=== PATIENT | female | born 1970 | race Caucasian/White ===

== ENCOUNTER 2020-03-02 09:32 | Inpatient (IN) | payer OTHER ==
[~2020-03-02] VITALS: Ht 160 cm; Wt 56.7 kg
--- NOTE | ~2020-03-02 | CON ---
[address] [address] CONSULTATION Name: LASHAWN CABALLERO Room: [address] IN M.R.#: [id number] Admission: 03/03/20 Attend Phys: Wai Swanson MD Discharge: Date of : 74 Report #: [id number] THIS REPORT FOR: //name// cc: FAM - No family physician/PCP FAM - No family physician/PCP ~ DATE OF SERVICE: 03/05/2020 The patient does not have a PCP. Please note at the time of this dictation, the patient was seen and physically examined by myself. REASON FOR CONSULTATION: Elevated LFTs and liver cyst. HISTORY OF PRESENT ILLNESS: This 49-year-old female who has a strong history of coronary artery disease that presented to the Emergency Room with mid epigastric pain associated with nausea, no vomiting that has gotten worse. She states the pain had started last Sunday and she associated that with maybe a viral syndrome because she was having some myalgias and joint pains as well. She denied any weight loss. She did have a little bit of a decreased p.o. intake and decreased appetite with a feeling of nausea. Because she has had a history of heart attack in the past and blood clots prompted her to come to the emergency to get that ruled out. It was noted she had EKG changes and elevated troponin. She was taken to the pie bakery laborer, which was essentially negative today. She does have an EF of 15-20% and her cast today just showed very minimal plaquing. She has never had an EGD or colonoscopy done in the past either. She denies taking any NSAIDs on a regular basis as well. ALLERGIES: ACETAMINOPHEN, IBUPROFEN AND DICLOFENAC. MEDICATIONS FROM HOME: See MAR. PAST MEDICAL HISTORY: Coronary artery disease, hypertension, hypothyroidism and history of an SC. PAST SURGICAL HISTORY: Negative. FAMILY HISTORY: Negative for any GI or female cancers. SOCIAL HISTORY: Denies any alcohol. She continues to smoke tobacco and denies any illegal drug use at this time. REVIEW OF SYSTEMS: Twelve-point review of systems is essentially negative except what is mentioned in the HPI. PHYSICAL EXAMINATION: [place] [address] CONSULTATION Name: LASHAWN CABALLERO [place] Room: [address]#: [id number] Admission: 03/03/20 Attend Phys: Wai Swanson MD Discharge: Date of : 74 Report #: [id number] VITAL SIGNS: Temperature 36.3, pulse 84, respirations 15, blood pressure 162/119. HEART: Regular rate and rhythm. LUNGS: Diminished, but clear. ABDOMEN: Soft, positive bowel sounds in all 4 quadrants with extreme epigastric tenderness noted to palpation. LABORATORY DATA: Hemoglobin is 12, white count 7.5, platelets 221. Total bilirubin 0.5, alkaline phosphatase 141, ALT is 171, AST is 98. Her acute hepatitis panel is negative. AMA, ASMA and GABY are pending. GFR is 53. DIAGNOSTIC DATA: CT scan was essentially negative with some multiple liver cysts noted. Ultrasound continues to show consistent with cysts that appear to be benign. IMPRESSION: 1. Epigastric pain, severe. 2. Elevated LFTs. 3. Hepatic cyst, likely benign. 4. Cardiomyopathy. PLAN: 1. EGD tomorrow in the a.m. with Dr. Urena. 2. Liver labs pending. 3. Further recommendations to be made once the procedure has been performed. Thank you for allowing us to participate in this patient's care. Please do not hesitate to call with any questions in regard to this consult. By: 1148 1220Huan Urena MD /nt
[~2020-03-02 09:32] MED LIST: BACTRIM DS TAB1 EACH PO; BIRTH CONTROL; CIPROFLOXACIN500 M3 PO; DIFLUCAN150 MG PO; LANSOPRAZOLE30 MG PO; LISINOPRIL-HCT1 EACH PO; MEDROLDOSEPACK PO; NORCO 5-325 TA1 EACH PO; OXYCODONE HCL 55 MG PO; PENICILLIN VK250 MG PO; PERCOCET 5-3251 EACH PO; PYRIDIUM200 MG PO; ROXICODONE5 M1 PO; SPRINTEC1 EACH; SYNTHROID50 MCG PO
[2020-03-02 09:33] VITALS: BP 187/142
[2020-03-02 10:01] LABS: ABSOLUTE BASOPHILS 0.1 thou/uL (0.0-0.2); ABSOLUTE LYMPHOCYTES 1.1 thou/uL (0.8-5.3); ABSOLUTE MONOCYTES 0.4 thou/uL (0.0-1.2); ABSOLUTE NEUTROPHILS 6.2 thou/uL (1.6-8.1); EOSINOPHILS 0.1 %; HEMATOCRIT 38.1 % (37.0-47.0); HEMOGLOBIN 12.8 gm/dL (12.0-15.0); LYMPHOCYTES 14.4 %; MCH 29.5 pg (26.0-34.0); MCHC 33.5 g/dL (28.0-37.0); MCV 88.2 fL (80.0-100.0); MONOCYTES 4.7 %; MPV 8.6 fl. (7.2-11.1); NUCLEATED RBCS 0 /100WBC; PLATELET COUNT* 216 thou/uL (150-400); POLYS 79.8 %; RBC 4.32 mil/uL (4.20-5.00); RDW-CV 14.5 % (10.5-14.5); WBC 7.7 thou/uL (4.0-11.0)
[2020-03-02 10:10] LABS: CALCIUM 8.7 mg/dL (8.5-10.1); CREATININE 1.1 mg/dL (0.6-1.3)
[2020-03-02 10:17] LABS: ALBUMIN 3.7 g/dL (3.4-5.0); MAGNESIUM 1.9 mg/dL (1.8-2.4); TOTAL BILIRUBIN 1.1 mg/dL (<0.1-1.0); TOTAL PROTEIN 7.4 g/dL (6.4-8.2)
[2020-03-02 11:04] LABS: APTT 23.8 Seconds (25.0-31.3); INR 1.1; PROTIME 11.1 Seconds (9.20-11.50)
[2020-03-02 11:31] LABS: URINE BILIRUBIN NEGATIVE (Negative); URINE BLOOD NEGATIVE (Negative); URINE CLARITY CLEAR; URINE COLOR YELLOW; URINE GLUCOSE-RANDOM NEGATIVE (Negative); URINE KETONES NEGATIVE (Negative); URINE LEUKOCYTES-REFLEX NEGATIVE (Negative); URINE NITRITE-REFLEX NEGATIVE (Negative); URINE PROTEIN 3+ (Negative); URINE SPECIFIC GRAVITY >= 1.030 (1.005-1.030); URINE UROBILINOGEN 0.2 E.U./dl (0.2-1.0)
[2020-03-02 11:39] LABS: AMP/METHAMP Negative (Negative); BARBITURATES Negative (Negative); BENZODIAZEPINES Negative (Negative); COCAINE Negative (Negative); METHADONE Negative (Negative); OPIATES Negative (Negative); PCP Negative (Negative); THC Negative (Negative)
[2020-03-02 11:41] LABS: SQUAMOUS 0-3 Few /LPF (0-3)
[2020-03-02 11:42] LABS: AMORPHOUS URATES Few /LPF (None Seen); BACTERIA-REFLEX 1-9 Few /HPF (None Seen); CRYSTALS None Seen /LPF (None Seen); FINE GRANULAR CASTS 0-3 Few /LPF (None Seen); URINE RBC 0-2 Rare /HPF (0-2); URINE WBC-REFLEX 0-5 Rare /HPF (0-5)
[2020-03-02 12:42] LABS: CHOLESTEROL 198 mg/dL (<200); HDL CHOLESTEROL 60 mg/dL (>40); LDL CHOLESTEROL 120 mg/dL (<100); TC:HDL 3.3 Ratio (Not establshd); TRIGLYCERIDE 91 mg/dL (<150); VLDL 18 mg/dL (<40)
[2020-03-02 12:45] LABS: SERUM ASSESSMENT Clear
[2020-03-02 20:20] VITALS: BP 114/82
[2020-03-02 21:00] VITALS: BP 118/80
[2020-03-02 23:06] LABS: HEPATITIS B SURFACE AG Negative (Negative)
[2020-03-03] VITALS: BP 125/81
[2020-03-03 04:00] VITALS: BP 128/46
[2020-03-03 04:18] LABS: HEMATOCRIT 37.2 % (37.0-47.0); HEMOGLOBIN 12.5 gm/dL (12.0-15.0); MCH 29.4 pg (26.0-34.0); MCHC 33.5 g/dL (28.0-37.0); MCV 87.8 fL (80.0-100.0); MPV 8.6 fl. (7.2-11.1); RBC 4.24 mil/uL (4.20-5.00); RDW-CV 14.8 % (10.5-14.5); WBC 7.9 thou/uL (4.0-11.0)
[2020-03-03 04:39] LABS: CALCIUM 8.2 mg/dL (8.5-10.1); CREATININE 1.2 mg/dL (0.6-1.3); POTASSIUM 3.1 mmol/L (3.5-5.1)
[2020-03-03 04:43] LABS: ALBUMIN 3.1 g/dL (3.4-5.0); MAGNESIUM 1.8 mg/dL (1.8-2.4); TOTAL BILIRUBIN 0.7 mg/dL (<0.1-1.0); TOTAL PROTEIN 6.4 g/dL (6.4-8.2)
--- NOTE | 2020-03-03 04:44 | NUR ---
RECIEVED REPORT FROM ZE MINAYA. PT TRANSFERRED TO 229. PT A&OX4. VSS. TECHNOLOGY SALES SPECIALIST IN PLACE. ADMISSION HISTORY & PHYSICAL ASSESSMENT COMPLETED AND CHARTED. PT ON RA. PT TRACING SR/SB ON TELE. PT UPADLIB TO RESTROOM. PT DENIES CHEST PAIN. MAINTAINED ON HEPARIN DRIP. MANTAINED ON ENHANCED PRECAUTION-PENDING COVID PCR. CALL LIGHT WITHIN REACH.
[2020-03-03 07:30] VITALS: BP 146/93
--- NOTE | 2020-03-03 11:24 | EKG ---
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 : 1970 Requested By: Nereyda Cannon Order Number: [id number] MD: Dominguez Fry Measurements Intervals [place] Rate: 116 P: 59 KS: 139 QRS: -20 QRSD: 109 T: 127 QT: 360 QTc: 501 Interpretive Statements Sinus tachycardia with pvc Probable left atrial enlargement LVH with secondary repolarization abnormality Borderline ST elevation, inferior leads Borderline prolonged QT interval Compared to ECG 05/02/2006 06:43:49 Left ventricular hypertrophy now present Early repolarization now present ST (T wave) deviation now present Sinus rhythm no longer present Electronically Signed On 03-03-2020 11:24:46 EXPLOSIVE ORDNANCE DISPOSAL TECHNICIAN by Dominguez Fry [email or web address] <ELECTRONICALLY SIGNED> By: Dominguez Fry MD, [facility] 03/03/20 1124 0939 Dominguez Fry MD, [facility] /EPI
[2020-03-03 12:00] VITALS: BP 142/86
--- NOTE | 2020-03-03 12:19 | 2DMMODE ---
[place] [address] 2 D/M-MODE ECHOCARDIOGRAM Name: LASHAWN CABALLERO Room: [facility] IN M.R.#: [id number] Admission: 03/03/20 Attend Phys: Wai Swanson, Discharge: Date of : 74 Date of Service: 03/03/20 1219 Report #: [id number] THIS REPORT FOR: cc: FAM - No family physician/PCP FAM - No family physician/PCP Dominguez Fry MD [facility] ~ APPROVED REPORT Study performed: 03/03/2020 10:35:28 EXAM: Comprehensive 2D, Doppler, and color-flow Echocardiogram Patient Location: Bedside BSA: 1.58 HR: 66 bpm BP: 128/44 mmHg Other Information Study Quality: Excellent Indications Chest Pain 2D Dimensions IVSd: 10.73 (7-11mm) LVOT Diam: 20.87 (18-24mm) LVDd: 64.21 mm PWd: 15.39 (7-11mm) Ascending Ao: 33.77 (22-36mm) LVDs: 59.72 (25-40mm) Aortic Root: 27.36 mm Volumes Left Atrial Volume (Systole) LA ESV Index: 50.10 mL/m2 Aortic Valve AoV Peak Matthias.: 0.99 m/s AO Peak Gr.: 3.90 mmHg LVOT Max P.86 mmHg AO Mean Gr.: 2.13 mmHg LVOT Mean P.91 mmHg LVOT Max V: 0.68 m/s AO V2 VTI: 16.66 cm LVOT Mean V: 0.44 m/s MALIKA (VTI): 2.14 cm2 LVOT V1 VTI: 10.44 cm Mitral Valve E/A Ratio: 2.19 [place] [address] 2 D/M-MODE ECHOCARDIOGRAM Name: LASHAWN CABALLERO Room: [address] IN ..#: [id number] Admission: 03/03/20 Attend Phys: Wai Swanson, Discharge: Date of : 74 Date of Service: 03/03/20 1219 Report #: [id number] MV Decel. Time: 136.75 ms MV E Max Matthias.: 0.84 m/s MV PHT: 39.66 ms MVA (PHT): 5.55 cm2 Pulmonary Valve PV Peak Matthias.: 0.53 m/s PV Peak Gr.: 1.14 mmHg Tricuspid Valve RAP Estimate: 15.00 mmHg TR Peak Gr.: 40.90 mmHg RVSP: 55.90 mmHg PA Pressure: 55.90 mmHg Left Ventricle Left ventricle is mildly dilated. There is global hypokinesis of the left ventricle. Mild concentric left ventricular hypertrophy. Left ventricular systolic function is severely decreased. LVEF is 15-20%. Right Ventricle Right ventricle is dilated. The right ventricular systolic function is normal. Atria Left atrium is severely dilated. The right atrium size is normal. Aortic Valve The aortic valve is normal in structure. No aortic regurgitation is present. There is no aortic valvular stenosis. Mitral Valve The mitral valve is normal in structure. Mild mitral regurgitation. No evidence of mitral valve stenosis. Tricuspid Valve The tricuspid valve is normal in structure. Mild tricuspid regurgitation. estimated pa pressure 45 mm Hg Pulmonic Valve The pulmonary valve is normal in structure. There is no pulmonic valvular regurgitation. Great Vessels The aortic root is normal in size. [place] [address] 2 D/M-MODE ECHOCARDIOGRAM Name: LASHAWN CABALLERO Room: [address] IN [facility].#: [id number] Admission: 03/03/20 Attend Phys: Wai Swanson, Discharge: Date of : 74 Date of Service: 03/03/20 1219 Report #: [id number] Pericardium Trace pericardial effusion. <Conclusion> Left ventricle is mildly dilated. Mild concentric left ventricular hypertrophy. LVEF is 15-20%. Left atrium is severely dilated. Mild mitral regurgitation. Mild tricuspid regurgitation. estimated pa pressure 45 mm Hg <ELECTRONICALLY SIGNED> By: Dominguez rFy MD, FAC 03/03/20 1219 18 Dominguez Fry MD, [facility] /INF
[2020-03-03 16:00] VITALS: BP 109/79
--- NOTE | 2020-03-03 17:11 | CARDNUC ---
[place] [address] CARDIAC NUCLEAR IMAGING REPORT Name: LASHAWN CABALLERO Room: [address] IN [facility]#: [id number] Admission: 03/03/20 Attend Phys: Wai Swanson, Discharge: Date of : 74 Date of Service: 03/03/20 1711 Report #: [id number] THIS REPORT FOR: cc: FAM - No family physician/PCP FAM - No family physician/PCP Jas Russell MD [facility] ~ APPROVED REPORT Study performed: 03/03/2020 12:08:46 Exam: Nuclear Stress Test Indication: DU, Weakness, Midepigastric pain with nausea, elevated troponins, s/p NSTEMI. Patient Location: In-Patient Room #: 229 NM Tech:ATA Rey Ht: 5 ft 2 in Wt: 125 lbs BSA: 1.57 m2 BMI: 22.86 Medical History Medical History: HX NON-STEMI, DU, elevated troponins, midepigastric pain with nausea, hypothyroidism, weakness, left flank pain, headache, HX Blood clots, HTN, CAD, current smoker. Medications: ASA 325 Mg, Carvedilol, Lisinopril, K-Dur, Mag-Ox. Allergies: Diclofenac Potassium, Acetaminophen, Ibuprofen. Cardiac Risk Factors: Current Smoker, FHX of CAD, HTN, SOB, elevated troponins, HX blood clots. Previous Cardiac Procedures: Myocardial infarction Pretest Chest Pain Characteristics: No chest pain Exercise History: Physically active Physical Disabilities: None Meds Held (24 hrs): Carvedilol. Stress Test Details Stress Test: Exercise stress testing was performed using a Pratik protocol. HR Resting HR: 68 bpm Max Heart Rate (APMHR): 173 bpm Max HR Achieved: 152 bpm Target HR (85% APMHR): 147 bpm % of APMHR: 87 Recovery HR: 90 [place] [address] CARDIAC NUCLEAR IMAGING REPORT Name: LASHAWN CABALLERO Room: [address]#: [id number] Admission: 03/03/20 Attend Phys: Wai Swanson, Discharge: Date of : 74 Date of Service: 03/03/20 1711 Report #: [id number] Resting BP: 148/109 mmHg Max BP: 187/109 mmHg ECG Resting ECG: Sinus Rhythm, LVH with repolarization changes Stress ECG: Sinus Tachycardia, LVH with repolarization changes ST Change: None Arrhythmia: None Recovery ECG: Sinus Rhythm, LVH with repolarization changes Recovery ST Change: None Recovery Arrhythmia: None Clinical Reason for Termination: Completed protocol, Maximal effort, Patient Request, Target HR obtained. Stress Symptoms: Chest pain, Fatigue, Weakness. Exercise duration: 9 min 10 sec Exercise capacity: 10.16 METs Overall Exercise Capacity for Age: Normal to Superior. The patient denies any significant cardiac symptoms associated with Lexiscan infusion. Nurse Comments A 49 year old female inpatient presented for a Treadmill Nuclear Stress Test r/t s/p NSTEMI, DU, weakness, elevated troponins, midepigastric pain with nausea, headache, HTN. Treadmill tolerated to stage 3, target HR obtained. Recovery unremarkable. Patient was stable with continued HTN, asymptomatic and stated she felt good when escorted via wheelchair to Nuclear Medicine for imaging. Stress ECG Conclusion The baseline twelve-lead EKG shows sinus rhythm with left ventricular hypertrophy and repolarization abnormalities. EKGs obtained during and post Lexiscan infusion show sinus rhythm and sinus tachycardia with persistent repolarization abnormalities. There were no stress-induced arrhythmias. NM EXAM: Myocardial Perfusion REST/STRESS Imaging Protocol: Rest Tc-99m/Stress Tc-99m 1 day Resting Data Rest SPECT myocardial perfusion imaging was [place] [address] CARDIAC NUCLEAR IMAGING REPORT Name: LASHAWN CABALLERO Room: [address]#: [id number] Admission: 03/03/20 Attend Phys: Wai Swanson, Discharge: Date of : 74 Date of Service: 03/03/20 1711 Report #: [id number] position 30 minutes following the intravenous injection of 12.0 mCi of Tc-99m Sestamibi. Time of rest injection: 1020 Date: 03/03/2020 The images were gated to evaluate regional wall motion and calculate left ventricular ejection fraction. Administration Route: IV Administration Site: Right Arm Exercise Stress At peak stress, the patient was injected intravenously with 36.0mCi of Tc-99m Sestamibi. Time of stress injection: 1205 Date: 03/03/2020 Administration Route: IV Administration Site: Right Arm Gated Stress SPECT was performed 30 minutes after stress injection. The images were gated to evaluate regional wall motion and calculate left ventricular ejection fraction. Prone imaging was performed. Study Quality Study: Good Artifact: Mild Diaphragmatic artifact Study Data At rest, the left ventricular ejection fraction was 16%.. Post stress, the left ventricular ejection was 16%.. TID = 0.96. Perfusion A large in size severe in intensity inferior wall defect at rest that only shows partial improvement on post stress prone imaging suggesting the possibility of previous inferior wall infarct. Additionally there is a focal slightly reversible defect at the apex which again could represent a region of infarct. Wall Motion There is severe global hypokinesis. Additionally areas of the distal to apical inferolateral wall appear akinetic. The left ventricle is dilated and show severe left ventricular systolic dysfunction. Nuclear Conclusion ECG Findings: non-diagnostic Clinical Findings: negative for ischemia Nuclear Findings: [place] [address] CARDIAC NUCLEAR IMAGING REPORT Name: LASHAWN CABALLERO Room: [address] IN [facility]#: [id number] Admission: 03/03/20 Attend Phys: Wai Swanson, Discharge: Date of : 74 Date of Service: 03/03/20 1711 Report #: [id number] Exercise Capacity: not assessed Left Ventricular Function: abnormal Risk Study: high Perfusion study suggest the possibility of inferior and inferolateral apical infarcts. Global LV systolic function is severely decreased. The left ventricle is dilated. This is a high risk study based on severe LV systolic dysfunction. <Conclusion> The baseline twelve-lead EKG shows sinus rhythm with left ventricular hypertrophy and repolarization abnormalities. EKGs obtained during and post Lexiscan infusion show sinus rhythm and sinus tachycardia with persistent repolarization abnormalities. There were no stress-induced arrhythmias. <ELECTRONICALLY SIGNED> By: Jas Russell MD, FACC 03/03/201710 10 10 Jas Russell MD, FACC /INF
--- NOTE | 2020-03-03 18:04 | NUR ---
CM SPOKE TO THE PT TO DISCUSS CM ASSESSMENT.PT A&O, INDEPENDENT WITH ADL'S, ACTIVE AND WORKS. PT USES 0 DME. PT HAS 0 HX OF HH OR SNF. PT INFORMS THAT SHE DOES NOT HAVE INSURANCE. CM TO ASK MED ASSISST TO COMPLETE MEDICAID ASSESSMENT WITH PT. CM WILL REMAIN AVAILABLE TO ASSIST AND FOLLOW NEEDED.
[2020-03-03 20:00] VITALS: BP 115/77
[2020-03-04] VITALS (15 sets, daily range): BP systolic 82–155; BP diastolic 46–114
[2020-03-04 05:00] LABS: HEMOGLOBIN 11.9 gm/dL (12.0-15.0); MCH 29.8 pg (26.0-34.0); MCHC 33.2 g/dL (28.0-37.0); MCV 89.7 fL (80.0-100.0); RBC 4.01 mil/uL (4.20-5.00); RDW-CV 14.9 % (10.5-14.5); WBC 6.5 thou/uL (4.0-11.0)
[2020-03-04 05:17] LABS: ALBUMIN 3.1 g/dL (3.4-5.0); CALCIUM 8.7 mg/dL (8.5-10.1); CREATININE 1.3 mg/dL (0.6-1.3); MAGNESIUM 1.9 mg/dL (1.8-2.4); POTASSIUM 4.7 mmol/L (3.5-5.1); TOTAL BILIRUBIN 0.3 mg/dL (<0.1-1.0); TOTAL PROTEIN 6.3 g/dL (6.4-8.2)
--- NOTE | 2020-03-04 06:38 | NUR ---
ASSUMED PT CARE AT APPROX 1930. PT IS AWAKE AND ORIENTED X4. PT IS TRACING SR ON THE LINING FINISHER. ASSESSMENT DONE AND CHARTED. PT DENIES CHEST PAIN/DISCOMFORT. PT IS ABLE TO SLEEP MOST OF THE NIGHT. NO ACUTE CHANGES THIS SHIFT. CALL LIGHT WITHIN REACH. HOURLY ROUNDING DONE FOR PT SAFETY.
--- NOTE | 2020-03-04 12:39 | NUR ---
CM INFORMED DURING PRIME ROUNDING OF THE PLAN OF CARE FOR THE PT INCLUDING PLANNNED RETAIL SALES ASSOCIATE SEASONAL PROCEDURE TODAY. PT'S PCR IS NEGATIVE. CM PROVIDED PT WITH COMMUNITY RESOURCE LIST. CM WILL REMAIN AVAILABLE TO ASSIST AND FOLLOW NEEDED.
--- NOTE | 2020-03-04 16:37 | CARD ---
[address] [address] CARDIAC CATH REPORT Name: LASHAWN CABALLERO Room: [address] IN [facility]#: [id number] Admission: 03/03/20 Attend Phys: Wai Swanson MD Discharge: Date of : 74 Report #: [id number] THIS REPORT FOR: //name// cc: MENDY Garcia No family physician/PCP MENDY - No family physician/PCP ~ APPROVED REPORT Study performed: 03/04/2020 14:45:49 Patient Details Patient Status: In-Patient Room #: 229 The patient is a 49 year-old female Event Personnel Jas Russell Filter Washer, Jennifer Bush RN Quality Assurance Clerk, Maegan Roth RTR Monitor, Sanju Johnson RTR Scrub Procedures Performed Art Access - R femoral artery, Left Heart Cath w/or w/o Coronaries LHC, Hemostasis w/ Mynx Admission/Lab Medications/Medications given during procedure Oxygen Nasal cannula 2 l per min, Lidocaine Subcut 20 ml, Midazolam (Versed) IV 1 mg, Fentanyl IV 25 mcg Procedure Narrative The patient was brought electively to the Cardiac Catheterization Laboratory and was prepped and draped in a sterile manner. The right femoral was infiltrated with 1% Lidocaine subcutaneous anesthesia. A 6F Gowrie sheath was inserted into the right femoral artery. Coronary angiography was performed using coronary diagnostic catheters. The right coronary system was accessed and visualized with a 6F JR4 catheter. The left coronary system was accessed and visualized with a 6F JL4 catheter. The left ventricle was accessed and visualized with a 6F JR4 catheter. Left ventricular/Aortic Valve gradient assessed via catheter pullback. Pre-demployment femoral angiogram was performed . Closure device was deployed with a 6 Fr Mynx. The patient tolerated the procedure well and there were no complications associated with the procedure. There was no hematoma. Intraoperative Conscious Sedation Sedation start time: 15:22 Case end Time: 15:34 Fentanyl 25 mcg Versed 1 [place] [address] CARDIAC CATH REPORT Name: LASHAWN CABALLERO Room: [address] IN [facility]#: [id number] Admission: 03/03/20 Attend Phys: Wai Swanson MD Discharge: Date of : 74 Report #: [id number] Fluoro Time: 1.6 minutes Dose: DAP 86121 cGycm2 563 mGy Contrast Type and Amount: Visipaque 80 ml Diagnostic Cath Left Main The left main coronary artery is normal and bifurcates into a left anterior descending and circumflex coronary artery. LAD The left anterior descending coronary artery has a moderate 50% calcified plaque in the mid vessel. Distally the vessel appears relatively normal. Diagonal 1 Moderate 30% plaquing in the proximal diagonal. Diagonal 2 Second diagonal is free of significant disease. Circumflex The circumflex coronary artery is normal proximally and terminates in a large branched obtuse marginal branch. OM1 The first obtuse marginal branch is a large branch vessel that is mildly plaqued proximally. Right Coronary The right coronary artery is normal in its proximal mid and distal portion. R PDA A moderate size right posterior descending vessel is normal. RPLV A small branch right posterior lateral vessel is normal. Left Ventriculography Left Ventriculography was not performed. Hemodynamics The aortic pressure is 139/101 mmHg with a mean of 124 mmHg. The left ventricular pressure is 140/16 mmHg with a mean of mmHg. The left ventricular end diastolic pressure is 27 mmHg. Conclusion 1. Moderate plaquing in the mid LAD of approximately 50%. 2. Elevated left ventricular end-diastolic pressure consistent with acute on chronic diastolic heart failure. Recommendations 1. Continue medical management and aggressive risk factor modification. <ELECTRONICALLY SIGNED> By: Jas Russell MD, FACC 03/04/20 1637 1637 1637Micbala Russell MD, FACC /INF
--- NOTE | 2020-03-04 17:23 | NUR ---
PT REMAINED ALERT AND ORIENTED. PT RESTING IN BED. PT POST HEART CATH PROCEDURE TODAY. FALL RISK PRECAUTIONS IN PLACE. HOURLY ROUNDING COMPLETED. HEART MONITORED. WILL CONTINUE TO MONITOR.
[2020-03-05] VITALS (9 sets, daily range): BP systolic 123–170; BP diastolic 81–122
--- NOTE | 2020-03-05 09:02 | NUR ---
Pt aox4, running SR w/ PVC's, respirations are even and unlabored on room air. R groin cath site clean, dry and intact. No bruising or signs of hematoma present. Pt reported 7-8 out of 10 mediastinal chest pain that radiated to the L side of the chest. Fentanyl 50 mcg x3 was administered throughout shift. At 0400 pt had BP of 170/122 5 mg hydralazine IVP was administered. On reassessment BP was 146/112. Pt also had emesis x1 at 0500. 4 mg ondansetron IVP was administered. Pt reported relief of nausea on reassessment. Pt is medically stable at this time.
[2020-03-05 09:49] LABS: HEMATOCRIT 36.6 % (37.0-47.0); MCH 29.6 pg (26.0-34.0); MCHC 32.9 g/dL (28.0-37.0); MPV 9.3 fl. (7.2-11.1); RBC 4.06 mil/uL (4.20-5.00); RDW-CV 15.2 % (10.5-14.5); WBC 7.5 thou/uL (4.0-11.0)
[2020-03-05 10:03] LABS: ALBUMIN 3.3 g/dL (3.4-5.0); CALCIUM 8.6 mg/dL (8.5-10.1); CREATININE 1.1 mg/dL (0.6-1.3); POTASSIUM 4.3 mmol/L (3.5-5.1); TOTAL BILIRUBIN 0.5 mg/dL (<0.1-1.0); TOTAL PROTEIN 6.7 g/dL (6.4-8.2)
--- NOTE | 2020-03-05 10:25 | NUR ---
Cardiac Rehab. Patient feeling "sick and tired" this AM. States she just received Fentanyl for pain. Refuses to walk with this nurse. Dr Swanson notified. Denies further questions regarding HF education given. States she will remain smoke free after discharge using the "[place]" method.
--- NOTE | 2020-03-05 17:21 | EKG ---
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: : 1970 Requested By: Wai Swanson Order Number: [id number] Reading MD: Dominguez Fry Measurements Intervals [place] Rate: 85 P: 47 NM: 142 QRS: -18 QRSD: 106 T: 147 QT: 402 QTc: 478 Interpretive Statements Sinus rhythm Ventricular premature complex Probable left atrial enlargement LVH with secondary repolarization abnormality Compared to ECG 03/02/2020 09:39:33 Sinus tachycardia no longer present Electronically Signed On 03-05-2020 17:21:40 LICENSED PESTICIDE APPLICATOR by Dominguez Fry [email or web address] <ELECTRONICALLY SIGNED> By: Dominguez Fry MD, [facility] 03/05/20 1721 0545 0545 Dominguez Fry MD, [facility] /EPI
--- NOTE | 2020-03-05 18:55 | NUR ---
RECEIVED REPORT. ASSUMED CARE OF PT AROUND 0730. AM ASSESSMENT AND VITALS COMPLETED CAHRTED. MEDS PER EMAR. CLINICAL SERVICES ASSISTANT IN PLACE. HYPERTENSIVE THIS AM, CARDIOLOGY AWARE AND MEDS ADJUSTED. BP MUCH LOWER BY END OF SHIFT. PT TO HAVE EGD TOMORROW AM. HOPEFULLY TO DC AFTER THAT. UP AD GARFIELD TO BATHROOM. TOLERATING DIET. PO AND IV PAIN MEDICATION GIVEN WITH RELIEF. PT CURRENTLY WATCHING TV IN BED. CALL LIGHT IS WITHIN REACH. HOURLY ROUNDING PERFORMED. LOW FALL RISK PRECAUTIONS IN PLACE.
[2020-03-06 03:06] LABS: HIV-1/HIV-2 ANTIBODY Non Reactive (Non Reactive)
[2020-03-06 04:00] VITALS: BP 161/90
[2020-03-06 05:09] LABS: HEMATOCRIT 36.7 % (37.0-47.0); MCH 29.4 pg (26.0-34.0); MCHC 32.8 g/dL (28.0-37.0); MCV 89.8 fL (80.0-100.0); MPV 9.6 fl. (7.2-11.1); RBC 4.09 mil/uL (4.20-5.00); WBC 8.1 thou/uL (4.0-11.0)
[2020-03-06 05:45] LABS: ALBUMIN 3.1 g/dL (3.4-5.0); CREATININE 1.2 mg/dL (0.6-1.3); MAGNESIUM 1.8 mg/dL (1.8-2.4); POTASSIUM 4.5 mmol/L (3.5-5.1); TOTAL BILIRUBIN 0.5 mg/dL (<0.1-1.0); TOTAL PROTEIN 6.5 g/dL (6.4-8.2)
--- NOTE | 2020-03-06 06:26 | NUR ---
ASSUMED CARE OF PT AFTER REPORT AT 1930. PT A&OX4. VSS. PHYSICAL ASSESSMENT COMPLETED AND CHARTED. PT ON RA. PT TRACING SR/PVC ON TELE. PT UPADLIB TO RESTROOM PT COMPLAINED OF LEFT FLANK PAIN & EPIGASTRIC PAIN-MED GIVEN PER JUN. PT INSRTUCTED IN NPO POST MIDNIGHT. COMMUNICATES UNDERSTANDING. CALL LIGHT WITHIN REACH.
[2020-03-06 07:30] VITALS: BP 165/111
[2020-03-06 13:10] VITALS: BP 123/85
[2020-03-06 15:59] VITALS: BP 112/77
[2020-03-06 20:00] VITALS: BP 127/89
[2020-03-07] VITALS (7 sets, daily range): BP systolic 115–146; BP diastolic 92–112
--- NOTE | 2020-03-07 05:33 | NUR ---
ASSUMED CARE OF PT AFTER REPORT AT 1930. PT A&OX4. VSS. PHYSICAL ASSESSMENT COMPLETED AND CHARTED. PT ON RA. PT TRACING SR ON TELE. PT UPADLIB TO RESTROOM. PT COMPLAINED OF HEADACHE-MED GIVEN PER MAR. CALL LIGHT WITHIN REACH.
[2020-03-08] VITALS (14 sets, daily range): BP systolic 100–173; BP diastolic 57–126
[2020-03-08 04:38] LABS: ABSOLUTE BASOPHILS 0.1 thou/uL (0.0-0.2); ABSOLUTE EOSINOPHILS 0.1 thou/uL (0.0-0.7); ABSOLUTE LYMPHOCYTES 1.8 thou/uL (0.8-5.3); ABSOLUTE MONOCYTES 0.6 thou/uL (0.0-1.2); ABSOLUTE NEUTROPHILS 5.8 thou/uL (1.6-8.1); BASOPHILS 0.6 %; EOSINOPHILS 1.3 %; LYMPHOCYTES 21.2 %; MCH 29.1 pg (26.0-34.0); MCHC 32.3 g/dL (28.0-37.0); MCV 89.9 fL (80.0-100.0); MONOCYTES 6.7 %; MPV 9.8 fl. (7.2-11.1); NUCLEATED RBCS 0 /100WBC; PLATELET COUNT* 229 thou/uL (150-400); POLYS 70.2 %; RBC 4.11 mil/uL (4.20-5.00); RDW-CV 15.1 % (10.5-14.5); WBC 8.3 thou/uL (4.0-11.0)
[2020-03-08 04:57] LABS: PROTIME 10.7 Seconds (9.20-11.50)
[2020-03-08 05:12] LABS: CREATININE 1.1 mg/dL (0.6-1.3); MAGNESIUM 1.9 mg/dL (1.8-2.4); POTASSIUM 4.6 mmol/L (3.5-5.1); TOTAL BILIRUBIN 0.5 mg/dL (<0.1-1.0); TOTAL PROTEIN 6.5 g/dL (6.4-8.2)
--- NOTE | 2020-03-08 06:47 | NUR ---
ASSUMED CARE OF PT AFTER REPORT AT 1930. PT A&OX4. VSS. PHYSICAL ASSESSMENT COMPLETED AND CHARTED. PT TRACING SR ON TELE. PT WITH EPISODES OP ELEVATED DIASTOLIC BP-MED GIVEN PER JUN. PT COMPLAINED OF SOB-O2 SAT 97%-PLACED ON O2 A AT 2L NC FOR COMFORT. PT INSTRUCTED ON NPO POST MISNIGHT FOR LIVER BIOPSY TODAY. CALL LIGHT WITHIN REACH.
--- NOTE | 2020-03-08 14:54 | NUR ---
CM INFORMED DURING PRIME ROUNDING OF THE PLAN OF CARE FOR THE PT INCLUDING PLANNED LIVER BIOPSY TODAY. CM WILL REMAIN AVAILABLE TO ASSIST AND FOLLOW FOR D/C PLANNING NEEDS.
--- NOTE | 2020-03-08 18:50 | NUR ---
ASSUMED PT CARE AT 0730, PT AOX4, NO C/O PAIN OR SHORTNESS OF BREATH. PT WENT DOWN FOR LIVER BIOPSY THIS MORNING, RT ABD SITE C/D/I W/ BANDAID IN PLACE. PT BP HIGH THIS MORNING BUT WNL THROUGHOUT REST OF DAY. PT GOAL IS TO KEEP BP UNDER CONTROL AND KEEP SITE C/D/I. AM ASSESSMENT CHARTED, MEDS PER MAR, HOURLY ROUNDING OBSERVED, PT UP AD GARFIELD, CALL LIGHT W/IN REACH.
[2020-03-09] VITALS: BP 137/99
[2020-03-09 04:00] VITALS: BP 138/97
[2020-03-09 08:00] VITALS: BP 137/95
[2020-03-09] MEDS ORDERED: HYDRALAZINE 2525 MG PO (09:07)
[2020-03-09] MEDS ORDERED: CARVEDILOL25 MG PO (09:07)
[2020-03-09] MEDS ORDERED: SPIRONOLACTONE25 MG PO (09:07)
[2020-03-09] MEDS ORDERED: COZAAR100 MG PO (09:08)
[2020-03-09] MEDS ORDERED: HYDROCHLOROTHIA25 M2 PO (09:08)
[2020-03-09] MEDS ORDERED: OXYCODONE HCL 55 MG PO (09:08)
[2020-03-09] MEDS ORDERED: OMEPRAZOLE40 MG PO (09:14)
[2020-03-09] MEDS ORDERED: ASA81BEC PO (09:14)
[2020-03-09] MEDS ORDERED: SYNTHROID50 MCG PO (09:25)
--- NOTE | 2020-03-09 11:22 | NUR ---
CM INFORMED DURING PRIME ROUNDING OF PLAN OF CARE FOR THE PT INCLUDING PLAN FOR PT TO D/C HOME TODAY. CM TO PROVIDE PT WITH COMMUNITY RESOURCE LIST OF SAFETY NET CLINICS AND CONTACT INFO FOR THE [facility] [place] FOR FOLLOW-UP APPOINTMENTS AT D/C. CM WILL REMAIN AVAILABLE TO ASSIST AND FOLLOW NEEDED.
[2020-03-09 12:12] VITALS: BP 101/63
[2020-03-09 15:08] VITALS: BP 101/63
--- NOTE | 2020-03-09 16:40 | NUR ---
ASSUMED PT CARE AT 0730, PT AOX4, NO C/O PAIN OR SHORTNESS OF BREATH. PT WORKED W/ DR TODAY AND DC ORDERS RECEIVED. BP BEING MAINTAINED BY CURRENT MEDS. DC INSTRUCTIONS, CARE NOTES, SCRIPTS AND F/U APPTS GIVEN TO PT. PT COMMUNICATES UNDERSTANDING OF DC TEACHING. IV AND RELEASE AND TECHNICAL RECORDS CLERK REMOVED. PT DC'D BY WC W/ NURSING STAFF W/ ALL PAPERWORK AND BELONGINGS TO SON'S PERSONAL VEHICLE AT APPROX 1630.
--- NOTE | 2020-03-10 14:07 | PATH ---
[place] [address] PATHOLOGY RPT PROCEDURE Name: LASHAWN FLORES Room: [facility] IN M.R.#: [id number] Admission: 03/03/20 Date of : 74 Discharge: 03/09/20 Report #: [id number] Path Case #: [id number] [facility] Accession Number: [id number] . 01 Material submitted: . liver - LIVER BIOPSY . 01 Clinical history: . Abdominal pain, Increased LFTs, and cardiomyopathy with EF < 20% . 02 Diagnosis: Liver, needle biopsy: - Zone 3 sinusoidal dilatation, congestion, and atrophy of the corresponding hepatic plates, consistent congestive hepatopathy. - Extramedullary hematopoiesis. - Negative for significant fibrosis. - Please see comment. (ROSELIA:eugenie; 03/09/2020) MBJean Marie 03/10/2020 1317 Local . 02 Comment: The liver biopsy shows a pattern of hepatic outflow obstruction, consistent with the patient's history of heart failure. . (MLK:eugenie; 03/09/2020) . 02 Electronically signed: . Ericka Tatum MD, Pathologist NPI- [id number] . 01 Gross description: . The specimen is received in formalin, labeled "Lashawn Flores, liver tissue". Received are four needle cores of red-brown soft tissue ranging in length from 0.8 to 1.9 cm in length by 0.1 cm in diameter. The specimen is submitted entirely in cassette A1. (CAA; 03/08/2020) QAC/QA 03/08/2020 1754 Local . 02 Microscopic: . Needle biopsy of the liver is available for review. The portal tracts are of appropriate size. Some display a minimal mixed inflammatory infiltrate. Interlobular bile ducts are seen within the portal tracts examined. They demonstrate little epithelial injury. Interface activity is nonexistent. There is no evidence of granulomatous inflammation or ductular reaction. . The hepatic parenchyma shows zone 3 sinusoidal dilatation and focal congestion, with atrophy of the corresponding [place] [address] PATHOLOGY RPT PROCEDURE Name: LASHAWN FLORES Room: [address] DIS IN M.R.#: [id number] Admission: 03/03/20 Date of : 74 Discharge: 03/09/20 Report #: [id number] Path Case #: [id number] extramedullary hematopoiesis is noted within the sinusoids. Lobular necroinflammatory activity is minimal. . The trichrome stain fails to identify significant fibrous connective tissue deposition. The reticulin stain shows an overall intact hepatic reticulin framework pattern. Hepatic plates in the areas of sinusoidal congestion are atrophic. The PAS stain highlights hepatocellular cytoplasmic glycogen. The PAS-D stain shows scattered ceroid laden Kupffer cells. The iron stain is negative. . Special stains (properly controlled) - PAS with and without diastase, iron, trichrome and reticulin. . (TAMIKOK:eugenie; 03/09/2020) . 02 Pathologist provided ICD-10: K76.1, K72.90 . 02 CPT . 740561, 974114, 468961, 788490, 890893, 009640 Specimen Comment: A courtesy copy of this report has been sent to [phone] Specimen Comment: [phone] Specimen Comment: Report sent to / DR DOHERTY Performed at: 01 [facility] [address] [id number] MD Junior Sauer MD Phone: [phone] Performed at: 02 [facility] [address] [id number] MD Gareth Barba MD Phone: [phone]
--- NOTE | 2020-03-10 14:07 | PATH ---
[address] [address] PATHOLOGY RPT PROCEDURE Name: LASHAWN FLORES Room: [address] IN M.R.#: [id number] Admission: 03/03/20 Date of : 74 Discharge: 03/09/20 Report #: [id number] Path Case #: [id number] [facility] Accession Number: [id number] . 01 Material submitted: . stomach - GASTRIC BIOPSY R/O GASTRITIS . 01 Clinical history: . NON STEMI . 02 Diagnosis: Gastric biopsy: - Mild nonspecific chronic gastritis with focal fresh hemorrhage, negative for Helicobacter pylori organisms and dysplasia. (FAWN:pit 03/10/2020) . Special stain: H. pylori immuno QTP 03/10/2020 1137 Local . 02 Electronically signed: . Magdaleno Pop MD, Pathologist NPI- [id number] . 01 Gross description: . The specimen is received in formalin, labeled "Lashawn Flores, gastric biopsy, R/O gastritis". Received are two segments of pale fletcher soft tissue ranging in size from 0.2 to 0.4 cm in maximum dimensions. The specimen is submitted entirely in cassette A1. (CAA; 03/09/2020) QAC/QAC 03/09/2020 1209 Local . 02 Pathologist provided ICD-10: K29.50, K92.2 . 02 CPT . 262931, Q49009 Specimen Comment: A courtesy copy of this report has been sent to [phone] Specimen Comment: [phone] Specimen Comment: Report sent to / DR DOHERTY Performed at: [address], [place] [id number] MD Junior Saeur MD Phone: [phone] Performed at: 02 [facility] [address], [place], [place] [id number] MD Magdaleno Pop MD Phone: [phone]
== END 2020-03-09 16:30 | disposition home or self-care (01) | DRG 280 ==
LOC: M.ERS 09:32 → M.TBA-ER 12:30 → M.2W 21:09
PROVIDERS: Personal Emergency Response Attendant; Radiology Diagnostic Radiology; Registered Nurse; ADMIT Internal Medicine; ATTEND Internal Medicine
PROC: B211YZZ Fluoroscopy of Multiple Coronary Arteries using Other Contrast (ICD-10-PCS; principal; 2020-03-04)
PROC: 4A023N7 Measurement of Cardiac Sampling and Pressure, Left Heart, Percutaneous Approach (ICD-10-PCS; principal; 2020-03-04)
PROC: 0DB68ZX Excision of Stomach, Via Natural or Artificial Opening Endoscopic, Diagnostic (ICD-10-PCS; 2020-03-06)
PROC: 0FB03ZX Excision of Liver, Percutaneous Approach, Diagnostic (ICD-10-PCS; 2020-03-08)
DX: I21.A1 Myocardial infarction type 2 (principal); I50.23 Acute on chronic systolic (congestive) heart failure; I16.1 Hypertensive emergency; I42.8 Other cardiomyopathies; E03.9 Hypothyroidism, unspecified; I25.10 Atherosclerotic heart disease of native coronary artery without angina pectoris; K75.9 Inflammatory liver disease, unspecified; K76.89 Other specified diseases of liver; E87.6 Hypokalemia; I11.0 Hypertensive heart disease with heart failure; K29.70 Gastritis, unspecified, without bleeding; E78.5 Hyperlipidemia, unspecified; Z79.899 Other long term (current) drug therapy; I25.2 Old myocardial infarction; Z88.8 Allergy status to other drugs, medicaments and biological substances

== ENCOUNTER 2020-07-08 14:10 | Observation (INO) | payer OTHER ==
[~2020-07-08] VITALS: Ht 160 cm; Wt 68.5 kg
[~2020-07-08 14:10] MED LIST changes: +ASA81BEC PO; +CARVEDILOL25 MG PO; +COZAAR100 MG PO; +HYDRALAZINE 2525 MG PO; +HYDROCHLOROTHIA25 M2 PO; +OMEPRAZOLE40 MG PO; +SPIRONOLACTONE25 MG PO
[2020-07-08 14:30] VITALS: BP 132/86
[2020-07-08] MEDS ORDERED: ENTRESTO 97 MG1 EACH PO (14:35)
[2020-07-08 15:30] LABS: ABSOLUTE BASOPHILS 0.1 thou/uL (0.0-0.2); ABSOLUTE EOSINOPHILS 0.2 thou/uL (0.0-0.7); ABSOLUTE LYMPHOCYTES 1.5 thou/uL (0.8-5.3); ABSOLUTE MONOCYTES 0.6 thou/uL (0.0-1.2); ABSOLUTE NEUTROPHILS 5.9 thou/uL (1.6-8.1); BASOPHILS 0.9 %; EOSINOPHILS 2.6 %; HEMATOCRIT 30.4 % (37.0-47.0); HEMOGLOBIN 10.3 gm/dL (12.0-15.0); LYMPHOCYTES 18.2 %; MCH 30.3 pg (26.0-34.0); MCV 89.1 fL (80.0-100.0); MONOCYTES 6.9 %; MPV 8.1 fl. (7.2-11.1); NUCLEATED RBCS 0 /100WBC; PLATELET COUNT* 273 thou/uL (150-400); POLYS 71.4 %; RBC 3.42 mil/uL (4.20-5.00); RDW-CV 14.6 % (10.5-14.5); WBC 8.3 thou/uL (4.0-11.0)
[2020-07-08 15:50] LABS: CALCIUM 10.1 mg/dL (8.5-10.1); CREATININE 1.8 mg/dL (0.6-1.3); POTASSIUM 4.9 mmol/L (3.5-5.1)
[2020-07-08 15:55] LABS: ALBUMIN 4.2 g/dL (3.4-5.0); TOTAL BILIRUBIN 0.5 mg/dL (<0.1-1.0)
[2020-07-08 16:31] LABS: URINE BILIRUBIN NEGATIVE (Negative); URINE BLOOD NEGATIVE (Negative); URINE CLARITY CLEAR; URINE COLOR YELLOW; URINE GLUCOSE-RANDOM NEGATIVE (Negative); URINE KETONES NEGATIVE (Negative); URINE LEUKOCYTES-REFLEX NEGATIVE (Negative); URINE NITRITE-REFLEX NEGATIVE (Negative); URINE PROTEIN NEGATIVE (Negative); URINE UROBILINOGEN 0.2 E.U./dl (0.2-1.0)
[2020-07-08 17:42] VITALS: BP 145/77
[2020-07-08 18:00] VITALS: BP 159/98
[2020-07-08 20:00] VITALS: BP 110/64
[2020-07-08 23:43] VITALS: BP 118/67
[2020-07-09 04:00] VITALS: BP 132/79
[2020-07-09 04:08] LABS: HEMATOCRIT 29.6 % (37.0-47.0); MCH 30.2 pg (26.0-34.0); MCHC 33.6 g/dL (28.0-37.0); MCV 89.7 fL (80.0-100.0); MPV 8.5 fl. (7.2-11.1); RBC 3.3 mil/uL (4.20-5.00); RDW-CV 14.6 % (10.5-14.5); WBC 6.2 thou/uL (4.0-11.0)
[2020-07-09 04:23] LABS: CALCIUM 9.8 mg/dL (8.5-10.1); CREATININE 1.5 mg/dL (0.6-1.3); POTASSIUM 4.6 mmol/L (3.5-5.1)
--- NOTE | 2020-07-09 04:24 | NUR ---
PT A&O. VSS ON RA. MEDS GIVEN ORDERED. UP AD [place]. DENIED PAIN. PT SLEPT MOST OF THE NIGHT. CALL LIGHT WITHIN REACH. WILL CONTINUE TO MONITOR.
[2020-07-09 07:47] VITALS: BP 139/97
--- NOTE | 2020-07-09 09:55 | NUR ---
CM SPOKE TO THE PT TO DISCUSS CM ASSESSMENT. PT A&O, INDEPENDENT WITH ADL'S, ACTIVE AND WORKS OUTSIDE THE HOME. PT USES 0 DME. PT HAS 0 HX OF HH OR SNF. PT INFORMS THAT SHE IS UNINSURED, BUT HAS MEDICAID [place] PENDING. CM TO PROVIDE PT WITH PRINTED INFO PACKET OF COMMUNITY RESOURCES FOR F/U AND [facility] INFO. CM WILL REMAIN AVAILABLE TO ASSIST AND FOLLOW NEEDED.
--- NOTE | 2020-07-09 12:24 | 2DMMODE ---
[place] [address] 2 D/M-MODE ECHOCARDIOGRAM Name: LASHAWN CABALLERO Room: [address] Hue Harmon#: [id number] Admission: 07/08/20 Attend Phys: Jas Russell, Discharge: Date of : 74 Date of Service: 07/09/20 1224 Report #: [id number] THIS REPORT FOR: cc: FAM - No family physician/PCP FAM - No family physician/PCP Patrick Rodriguez MD [facility] ~ APPROVED REPORT Study performed: 07/09/2020 10:03:21 EXAM: Limited 2D Echocardiogram Patient Location: In-Patient Room #: [facility] Status: routine BSA: 1.72 HR: 63 bpm BP: 139/97 mmHg Rhythm: NSR Other Information Study Quality: Good Indications Congestive Heart Failure 2D Dimensions IVSd: 11.41 (7-11mm) LVDd: 50.96 mm PWd: 10.51 (7-11mm) Aortic Root: 32.74 mm Volumes Left Atrial Volume (Systole) LA ESV Index: 36.70 mL/m2 Tricuspid Valve RAP Estimate: 5.00 mmHg TR Peak Gr.: 19.36 mmHg RVSP: 24.00 mmHg PA Pressure: 24.00 mmHg Left Ventricle The left ventricle is normal size. There is mild global hypokinesis of the left ventricle. Mild concentric left ventricular hypertrophy. Left ventricular systolic function is mild to moderately decreased. LVEF is 40-45%. [place] [address] 2 D/M-MODE ECHOCARDIOGRAM Name: LASHAWN CABALLERO Room: [address] Hue Harmon#: [id number] Admission: 07/08/20 Attend Phys: Jas Russell, Discharge: Date of : 74 Date of Service: 07/09/20 1224 Report #: [id number] Right Ventricle The right ventricle is normal size. The right ventricular systolic function is normal. Atria Left atrium is mildly dilated. The right atrium size is normal. Aortic Valve The aortic valve is normal in structure. No aortic regurgitation is present. There is no aortic valvular stenosis. Mitral Valve The mitral valve is normal in structure. There is no mitral valve regurgitation noted. Tricuspid Valve The tricuspid valve is normal in structure. Mild tricuspid regurgitation. No pulmonary hypertension. Pulmonic Valve The pulmonary valve is normal in structure. Great Vessels The aortic root is normal in size. IVC is normal in size and collapses >50% with inspiration. Pericardium Trace pericardial effusion. <Conclusion> The left ventricle is normal size. Mild concentric left ventricular hypertrophy. Left ventricular systolic function is mild to moderately decreased. LVEF is 40-45%. The right ventricle is normal size. Left atrium is mildly dilated. The right atrium size is normal. The aortic valve is normal in structure. The mitral valve is normal in structure. The tricuspid valve is normal in structure. Mild tricuspid regurgitation. No pulmonary hypertension. IVC is normal in size and collapses >50% [place] [address] 2 D/M-MODE ECHOCARDIOGRAM Name: LASHAWN CABALLERO Room: [address] Hue Harmon#: [id number] Admission: 07/08/20 Attend Phys: Jas Russell, Discharge: Date of : 74 Date of Service: 07/09/20 1224 Report #: [id number] Trace pericardial effusion. There is mild global hypokinesis of the left ventricle. <ELECTRONICALLY SIGNED> By: Patrick Rodriguez MD, FACC 07/09/20 1224 1224 23 Patrick Rodriguez MD, FACC /INF
--- NOTE | 2020-07-09 12:35 | EKG ---
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1970 Requested By: Katarzyna Crowley Order Number: [id number] MD: Patrick Rodriguez Measurements Intervals [place] Rate: 71 P: 44 AL: 147 QRS: 2 QRSD: 103 T: 150 QT: 403 QTc: 438 Interpretive Statements Sinus rhythm Repol abnrm suggests ischemia, lateral leads Minimal ST elevation, inferior leads Compared to ECG 03/05/2020 05:45:34 Possible ischemia now present ST (T wave) deviation now present Ventricular premature complex(es) no longer present Left ventricular hypertrophy no longer present Electronically Signed On 07-09-2020 12:34:55 FILTER MACHINE OPERATOR by Patrick Rodriguez [email or web address] <ELECTRONICALLY SIGNED> By: Patrick Rodriguez MD, [facility] 07/09/20 1234 1440 1440 Patrick Rodriguez MD, [facility] /EPI
--- NOTE | 2020-07-09 13:31 | NUR ---
PT RESTING AT THIS TIME. VSS ON RA.SR ON MONITOR.ECHO SHOWS EF OF 40-45%.NOTHING FURTHER.CLWR.WCTM
[2020-07-09] MEDS ORDERED: ATORVASTATIN CA20 MG PO (14:06)
[2020-07-09 14:40] VITALS: BP 139/97
[2020-07-09 14:44] VITALS: BP 139/97
--- NOTE | 2020-07-09 14:56 | NUR ---
PT DCD TO HOME IN STABLE CONDITON.DC INSTRUCTIONS,FOLLOW UP AND MEDICATIONS REVIEWED WITH PT AND PT REPORTS UNDERSTANDING WITHOUT FURTHER QUESTIONS. PT TAKEN TO VEHICLE WITH ALL OF BELONINGS BY NURSING STAFF.
== END 2020-07-09 15:00 | disposition home or self-care (01) ==
LOC: M.ERS 14:10 → M.2W 16:15 → M.TBA-ER 16:15 → M.2W 17:55
PROVIDERS: Emergency Medicine Emergency Medical Services; Physician Assistant; Registered Nurse; ADMIT Internal Medicine Cardiovascular Disease; ATTEND Internal Medicine Cardiovascular Disease
DX: I11.0 Hypertensive heart disease with heart failure (principal); I50.22 Chronic systolic (congestive) heart failure; N17.9 Acute kidney failure, unspecified; Z20.822 Contact with and (suspected) exposure to COVID-19; I21.4 Non-ST elevation (NSTEMI) myocardial infarction; E03.9 Hypothyroidism, unspecified; I42.8 Other cardiomyopathies; E78.5 Hyperlipidemia, unspecified; I25.10 Atherosclerotic heart disease of native coronary artery without angina pectoris; F17.210 Nicotine dependence, cigarettes, uncomplicated; Z79.899 Other long term (current) drug therapy; Z88.6 Allergy status to analgesic agent

== ENCOUNTER 2020-09-29 17:16 | Emergency (ER) | payer MEDICAID ==
[~2020-09-29] VITALS: Ht 162.6 cm; Wt 69.0 kg
[~2020-09-29 17:16] MED LIST changes: +ATORVASTATIN CA20 MG PO; +ENTRESTO 97 MG1 EACH PO
[2020-09-29] MEDS ORDERED: FUROSEMIDE 20 M20 MG PO (17:34)
[2020-09-29 20:21] VITALS: BP 132/76
== END 2020-09-29 20:21 | disposition home or self-care (01) ==
LOC: M.ERS 17:16
DX: S93.491A Sprain of other ligament of right ankle, initial encounter (principal); S93.691A Other sprain of right foot, initial encounter; I11.0 Hypertensive heart disease with heart failure; I50.9 Heart failure, unspecified; I25.10 Atherosclerotic heart disease of native coronary artery without angina pectoris; I25.2 Old myocardial infarction; E03.9 Hypothyroidism, unspecified; F17.210 Nicotine dependence, cigarettes, uncomplicated; Z88.6 Allergy status to analgesic agent; Z79.899 Other long term (current) drug therapy; Z79.82 Long term (current) use of aspirin; X50.1XXA Overexertion from prolonged static or awkward postures, initial encounter; Y93.01 Activity, walking, marching and hiking; Y92.89 Other specified places as the place of occurrence of the external cause; Y99.9 Unspecified external cause status

== ENCOUNTER 2021-05-11 10:36 | Emergency (ER) | payer MEDICAID ==
[~2021-05-11] VITALS: Ht 162.6 cm; Wt 72.1 kg
[~2021-05-11 10:36] MED LIST changes: +FUROSEMIDE 20 M20 MG PO
[2021-05-11 13:51] LABS: BE -2.6 mmol/L (-2 to +3); PCO2 35.7 mmHg (35.0-45.0); PO2 113.9 mmHg (75.0-100.0); pH 7.401 (7.340-7.450)
[2021-05-11 13:53] LABS: ABSOLUTE BASOPHILS 0.1 thou/uL (0.0-0.2); ABSOLUTE LYMPHOCYTES 1.1 thou/uL (0.8-5.3); ABSOLUTE MONOCYTES 0.3 thou/uL (0.0-1.2); ABSOLUTE NEUTROPHILS 6.3 thou/uL (1.6-8.1); BASOPHILS 0.7 %; EOSINOPHILS 0.6 %; HEMATOCRIT 33.7 % (37.0-47.0); HEMOGLOBIN 11.2 gm/dL (12.0-15.0); MCH 29.4 pg (26.0-34.0); MCHC 33.4 g/dL (28.0-37.0); MCV 88.2 fL (80.0-100.0); MPV 7.9 fl. (7.2-11.1); NUCLEATED RBCS 0 /100WBC; PLATELET COUNT* 241 thou/uL (150-400); POLYS 80.7 %; RBC 3.82 mil/uL (4.20-5.00); RDW-CV 14.2 % (10.5-14.5); WBC 7.8 thou/uL (4.0-11.0)
--- NOTE | 2021-05-11 13:53 | EKG ---
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: : 1970 Requested By: Valerio Salazar Order Number: [id number] MD: Patrick Rodriguez Measurements Intervals [place] Rate: 61 P: 49 NE: 143 QRS: 1 QRSD: 99 T: 155 QT: 430 QTc: 433 Interpretive Statements Sinus rhythm Abnormal inferior Q waves; inferior scar cannot be excluded Abnormal T, consider ischemia, anterolateral leads Compared to ECG 07/08/2020 14:40:01 Inferior Q waves persist T-wave abnormality still noted Possible ischemia still present Electronically Signed On 05-11-2021 13:53:24 JIGGER ARTISAN by Patrick Rodriguez [email or web address] <ELECTRONICALLY SIGNED> By: Patrick Rodriguez MD, FAC 05/11/21 1353 131 1312 Patrick Rodriguez MD, FAC /EPI
[2021-05-11] MEDS ORDERED: MECLIZINE HCL25 M1 PO (14:31)
[2021-05-11 14:35] VITALS: BP 176/82
== END 2021-05-11 14:36 | disposition home or self-care (01) ==
LOC: M.ERS 10:36
PROVIDERS: Physician Assistant
DX: H81.10 Benign paroxysmal vertigo, unspecified ear (principal); I11.0 Hypertensive heart disease with heart failure; I50.9 Heart failure, unspecified; E03.9 Hypothyroidism, unspecified; F17.210 Nicotine dependence, cigarettes, uncomplicated; Z79.899 Other long term (current) drug therapy; Z88.5 Allergy status to narcotic agent; Z88.6 Allergy status to analgesic agent